=== PATIENT | female | born 1935 | race Caucasian/White ===

== ENCOUNTER 2018-10-08 07:59 | Day surgery (SDC) | payer MEDICARE, BC ==
[2018-10-08] MEDS: TROPICAMIDE 1% 15 ML OPH OPER (09:01)
[2018-10-08] MEDS: MOXIFLOXACIN 0.5% 3 ML OPH OPER (09:01)
[2018-10-08] MEDS: CYCLOPENTOLATE/PHENYLEPH 2 ML OPH OPER (09:01)
[2018-10-08] MEDS: SOD CHLORIDE 0.9% 1,000 ML IV (09:02)
[2018-10-08] MEDS: DICLOFENAC 0.1% 2.5 ML OPH OPER (09:02)
[2018-10-08] MEDS ORDERED: LIDOCAINE 100 MG SYRINGE (09:41)
[2018-10-08] MEDS ORDERED: PROPOFOL 20 ML (09:41)
[2018-10-08] MEDS: CEFAZOLIN 1 GM INJ (09:59)
[2018-10-08] MEDS: CARBACHOL 0.01% 1.5 ML OPH INJ (09:59)
[2018-10-08] MEDS ORDERED: IPRATROPIUM (NEB) 0.5 MG/2.5 ML AMP HHN (10:00)
[2018-10-08] MEDS ORDERED: hydrALAzine 20 MG INJ IV (10:00)
[2018-10-08] MEDS ORDERED: ONDANSETRON 4 MG INJ IV (10:00)
[2018-10-08] MEDS ORDERED: ALBUTEROL 0.083% (NEB) 2.5 MG/3 ML AMP HHN (10:00)
[2018-10-08] MEDS ORDERED: EPHEDrine 25 MG/5 ML SYG IV (10:00)
[2018-10-08] MEDS ORDERED: LABETALOL HCL 20MG INJ IV (10:00)
[2018-10-08] MEDS ORDERED: MIDAZOLAM 1 MG/ML 2 ML INJ IV (10:00)
[2018-10-08] MEDS ORDERED: FENTAnyl 50 MCG/ML VIAL IV ×3 (10:00)
[2018-10-08] MEDS: DEXAMETHASONE 4 MG/ML 1 ML INJ (10:00)
[2018-10-08] MEDS ORDERED: HYDROmorphONE 1 MG/5 ML IV SYRINGE IV ×3 (10:00)
[2018-10-08] MEDS ORDERED: TRIMETHOBENZAMIDE 100 MG/ML VIAL IM (10:00)
[2018-10-08] MEDS ORDERED: MEPERIDINE 25 MG INJ IV (10:00)
[2018-10-08] MEDS ORDERED: DIPHENHYDRAMINE 50 MG INJ IV (10:00)
[2018-10-08] MEDS ORDERED: OXYCODONE/ACETAMINOPHEN (5/325) TAB PO ×2 (10:00)
[2018-10-08] MEDS: LIDOCAINE 4% (MPF) 5 ML INJ (10:01)
[2018-10-08] MEDS: GENTAMICIN 80 MG INJ (10:01)
[2018-10-08] MEDS: EPINEPHrine 1 MG INJ (10:01)
[2018-10-08] MEDS: NA HYALURONATE/CHONDROITIN 0.5 ML SYG (10:02)
[2018-10-08] MEDS: TETRACAINE 0.5% 4 ML OPH RIGHT EYE (10:02)
[2018-10-08] MEDS: DEXAMETHASONE 4 MG/ML 1 ML INJ INJ (10:02)
[2018-10-08] MEDS ORDERED: FENTAnyl 50 MCG/ML VIAL (10:15)
== END 2018-10-08 12:08 | disposition home or self-care (01) ==
LOC: SDS 07:59
DX: H25.11 Age-related nuclear cataract, right eye (principal); I10 Essential (primary) hypertension; E78.5 Hyperlipidemia, unspecified
CPT/HCPCS: 66984